=== PATIENT | female | born 1980 | race Caucasian/White ===

== ENCOUNTER 2023-08-23 17:46 | Emergency (ER) | payer OTHER, BC ==
[2023-08-23 17:50] VITALS: BP 110/74; PULSE 91; RESP 18; TEMP 97; BMI 22.6
[2023-08-23] MEDS ORDERED: LIDOCAINE 5% TOPICAL PATCH TP ONE (18:47)
[2023-08-23] MEDS ORDERED: METHOCARBAMOL 500 MG TABLET PO ONE (18:47)
[2023-08-23] MEDS ORDERED: KETOROLAC TROMETHAMINE 15 MG/ML VIAL IM ONE (18:47)
[2023-08-23] MEDS ORDERED: METHOCARBAMOL 500 MG TABLET ONE (19:02)
[2023-08-23] MEDS ORDERED: LIDOCAINE 4% PATCH TP ONE (19:02)
[2023-08-23] MEDS ORDERED: KETOROLAC TROMETHAMINE 15 MG/ML VIAL ONE (19:02)
[2023-08-23] MEDS ORDERED: LIDOCAINE PATCH REMOVAL MC ONE (22:00)
== END 2023-08-23 23:29 | disposition home or self-care (01) ==
LOC: JERFT 17:46 → JER 17:46 → JERFT 23:29
PROC: 3E0233Z Introduction of Anti-inflammatory into Muscle, Percutaneous Approach (ICD-10-PCS; principal; 2023-08-23)
DX: M54.2 Cervicalgia (principal); M54.9 Dorsalgia, unspecified; R51.9 Headache, unspecified; W01.0XXA Fall on same level from slipping, tripping and stumbling without subsequent striking against object, initial encounter; Y93.89 Activity, other specified; Y92.89 Other specified places as the place of occurrence of the external cause
CPT/HCPCS: 70450-TC; 72125-TC; 72128-TC; 72131-TC; 84703; 99284-25